=== PATIENT | male | born 1945 | race Caucasian/White ===

== ENCOUNTER → 2018-03-13 | Outpatient (CLI) | payer OTHER | END | disposition home or self-care (01) | LOC: CDC 13:02 | DX: Z01.810 Encounter for preprocedural cardiovascular examination (principal); S82.62XS Displaced fracture of lateral malleolus of left fibula, sequela; T84.498A Other mechanical complication of other internal orthopedic devices, implants and grafts, initial encounter | CPT/HCPCS: 93000 ==